=== PATIENT | male | born 1995 | race African-American/Black ===

== ENCOUNTER 2017-10-08 12:20 | Emergency (ER) | payer SELFPAY ==
[~2017-10-08] VITALS: Ht 195.6 cm; Wt 135.0 kg
[~2017-10-08 12:20] MED LIST: CYCL-36 PO; DICL50 PO
[2017-10-08 12:26] VITALS: BP 168/72; PULSE 83; RESP 12; TEMP 98.6; O2SAT 97
[2017-10-08] MEDS ORDERED: SODIUM CHLOR 0.9% 1000 ML INJ 1,000 ML IV ONE ×2 (12:48→13:15)
--- NOTE | 2017-10-08 12:55 | PD ---
HPI Chief Complaint: Medical Clearance Time Seen by Provider: 12:39 Travel History International Travel<30 days: No Contact w/Intl Traveler<30days: No Traveled to known affect area: No History of Present Illness HPI 22-year-old male presents emergency department complaining of polyuria and blurred vision for 2-3 days. Patient states that he has been urinating every 10 -15 minutes for 2-3 days. Denies dysuria, hematuria. Patient states that he does not normally have blurry vision and does does not wear corrective lenses. Patient describes blurry vision as foggy" trails" in difficulty seeing at distance. Patient denies photophobia but does admit to a mild headache for approximately 2 days. Patient denies chronic medical issues medication use. States that he has not seen a primary care physician in a number of years. Patient does not know if his immunizations are up-to-date. Patient does have a family history of diabetes with his uncles an cousins. Denies recent trauma, fever, chills, chest pain, shortness of breath, abdominal pain. PFSH Past Medical History Blood Disorders: No Social History Alcohol Use: No Tobacco Use: No Allergies-Medications (Allergen,Severity, Reaction): Coded Allergies: No Known Allergies (Verified Adverse Reaction, Unknown, 10/08/17) Reported Meds & Prescriptions Reported Meds & Active Scripts Active Metformin (Metformin HCl) 500 Mg Tab 500 Mg PO BIDPC 14 Days Review of Systems Except as stated in HPI: all other systems reviewed are Neg Physical Exam Narrative GENERAL: Well-developed well-nourished obese resting comfortably in bed SKIN: Focused skin assessment warm/dry. Acanthosis migrans present on anterior neck HEAD: Atraumatic. Normocephalic. EYES: Pupils equal and round. No scleral icterus. No injection or drainage. ENT: No nasal bleeding or discharge. Mucous membranes pink and moist. NECK: Trachea midline. No JVD. CARDIOVASCULAR: Regular rate and rhythm. No murmur appreciated. RESPIRATORY: No accessory muscle use. Clear to auscultation. Breath sounds equal bilaterally. GASTROINTESTINAL: Abdomen soft, non-tender, nondistended. MUSCULOSKELETAL: No obvious deformities. No clubbing. No cyanosis. No edema. NEUROLOGICAL: Awake and alert. No obvious cranial nerve deficits. Motor grossly within normal limits. Normal speech. PSYCHIATRIC: Appropriate mood and affect; insight and judgment normal. Data Data Last Documented VS Vital Signs Date Time Temp Pulse Resp B/P (MAP) Pulse Ox O2 Delivery O2 Flow Rate FiO2 10/08/17 14:30 10/08/17 14:00 70 19 100 Room Air 10/08/17 12:26 98.6 Orders Orders Complete Blood Count With Diff (10/08/17 12:48) Comprehensive Metabolic Panel (10/08/17 12:48) Magnesium (Mg) (10/08/17 12:48) Beta Hydroxybutyrate (Acetone) (10/08/17 12:48) Urinalysis - C+S If Indicated (10/08/17 12:48) Blood Glucose (10/08/17 12:48) Ecg Monitoring (10/08/17 12:48) Iv Access Insert/Monitor (10/08/17 12:48) Oximetry (10/08/17 12:48) Sodium Chlor 0.9% 1000 Ml Inj (Ns 1000 M (10/08/17 12:48) Lipase (10/08/17 12:48) Sodium Chlor 0.9% 1000 Ml Inj (Ns 1000 M (10/08/17 13:15) Ed Discharge Order (10/08/17 13:44) Labs Laboratory Tests Test 10/08/17 12:50 10/08/17 12:56 Urine Color YELLOW Urine Turbidity CLEAR Urine pH 6.0 Urine Specific [place] 1.042 Urine Protein 100 mg/dL Urine Glucose (UA) 1000 mg/dL Urine Ketones 40 mg/dL Urine Occult Blood SMALL Urine Nitrite NEG Urine Bilirubin NEG Urine Urobilinogen LESS THAN 2.0 MG/DL Urine Leukocyte Esterase NEG Urine RBC 1 /hpf Urine WBC 3 /hpf Urine Squamous Epithelial Cells 1 /hpf Urine Mucus FEW /lpf Urine Yeast (Budding) RARE Microscopic Urinalysis Comment CULT NOT INDICATED White Blood Count 6.2 TH/MM3 Red Blood Count 5.90 MIL/MM3 Hemoglobin 14.2 GM/DL Hematocrit 42.1 % Mean Corpuscular Volume 71.4 FL Mean Corpuscular Hemoglobin 24.1 PG Mean Corpuscular Hemoglobin Concent 33.7 % Red Cell Distribution Width 13.1 % Platelet Count 172 TH/MM3 Mean Platelet Volume 10.4 FL Neutrophils (%) (Auto) 44.3 % Lymphocytes (%) (Auto) 47.0 % Monocytes (%) (Auto) 6.4 % Eosinophils (%) (Auto) 1.8 % Basophils (%) (Auto) 0.5 % Neutrophils # (Auto) 2.7 TH/MM3 Lymphocytes # (Auto) 2.9 TH/MM3 Monocytes # (Auto) 0.4 TH/MM3 Eosinophils # (Auto) 0.1 TH/MM3 Basophils # (Auto) 0.0 TH/MM3 CBC Comment DIFF FINAL Differential Comment Blood Urea Nitrogen 13 MG/DL Creatinine 1.11 MG/DL Random Glucose 394 MG/DL Total Protein 8.5 GM/DL Albumin 3.9 GM/DL Calcium Level 9.0 MG/DL Magnesium Level 2.2 MG/DL Alkaline Phosphatase 125 U/L Aspartate Amino Transf (AST/SGOT) 23 U/L Alanine Aminotransferase (ALT/SGPT) 34 U/L Total Bilirubin 0.5 MG/DL Sodium Level 131 MEQ/L Potassium Level 3.8 MEQ/L Chloride Level 94 MEQ/L Carbon Dioxide Level 28.0 MEQ/L Anion Gap 9 MEQ/L Estimat Glomerular Filtration Rate 99 ML/MIN Lipase 154 U/L B-Hydroxybutyrate 0.62 MMOL/L [facility] Medical Decision Making Medical Screen Exam Complete: Yes Emergency Medical Condition: Yes Differential Diagnosis New onset diabetes mellitus, hyperglycemia, electrolyte abnormality Narrative Course 22-year-old male presents emergency department complaining of polyuria and blurred vision for 2-3 days. Patient states that he has been urinating every 10 -15 minutes for 2-3 days. Denies dysuria, hematuria. Patient states that he does not normally have blurry vision his eyes does not wear corrective lenses. Patient describes blurry vision as foggy" trails" in difficulty seeing at distance. Patient denies photophobia but does admit to a mild headache for approximately 2 days. Patient denies chronic medical issues medication use. States that he has not seen a primary care physician in a number of years. Patient does not know if his immunizations are up-to-date. Patient does have a family history of diabetes with his uncles an cousins. Denies recent trauma, fever, chills, chest pain, shortness of breath, abdominal pain. Vital signs stable. Physical exam findings reveal a nontoxic-appearing 22-year-old male in no acute distress. CBC & BMP Diagram 10/08/17 12:56 Total Protein 8.5 H, Albumin 3.9, Calcium Level 9.0, Magnesium Level 2.2, Alkaline Phosphatase 125 H, Aspartate Amino Transf (AST/SGOT) 23, Alanine Aminotransferase (ALT/SGPT) 34, Total Bilirubin 0.5 Labs demonstrate random glucose at 394, corrected sodium at 136.9. beta Hydroxybutyrate elevated at 0.62. Anion gap at 15. 2 L normal saline IV bolus administered. Pt feels well and prefers to go home and will follow up as discussed. Pt has new onset DM. FBG>200 with symptoms of diabetes. Pt will be discharged with metformin and advised to follow up in primary care and consider endocrinology. Diagnosis Primary Impression: Diabetes mellitus, new onset Additional Impression: Hyperglycemia Referrals: [facility] Additional Instructions: Follow-up with [facility] as discussed. I strongly advised to follow-up with an eye doctor as well to evaluate for potential diabetic retinopathy or diabetes induced visual changes. Follow-up with her primary care physician to discuss further options regarding treatment. If you choose not to follow-up, it as possible that you could develop permanent nerve damage to include blindness, neuropathy, in the inability to have an erection. Scripts Metformin (Metformin) 500 Mg Tab 500 MG PO BIDPC for Blood Sugar Management for 14 Days, #28 TAB 0 Refills Prov: Fallon Milligan 10/08/17 Disposition: 01 DISCHARGE HOME Condition: Stable Fallon Milligan Oct 08, 2017 12:55
[2017-10-08 13:12] LABS: AUTOMATED NEUTROPHIL # 2.7 TH/MM3 (1.8-7.7); BASOPHIL % 0.5 % (0.0-2.0); EOSINOPHIL # 0.1 TH/MM3 (0-0.4); EOSINOPHIL % 1.8 % (0.0-4.0); HEMATOCRIT 42.1 % (39.0-51.0); HEMOGLOBIN 14.2 GM/DL (13.0-17.0); LYMPHOCYTE # 2.9 TH/MM3 (1.0-4.8); MEAN CELL VOLUME 71.4 FL (80.0-100.0); MEAN CORPUSCULAR HEMOGLOBIN 24.1 PG (27.0-34.0); MEAN CORPUSCULAR HGB CONC 33.7 % (32.0-36.0); MEAN PLATELET VOLUME 10.4 FL (7.0-11.0); MONO % 6.4 % (0.0-8.0); MONOCYTE # 0.4 TH/MM3 (0-0.9); NEUT % 44.3 % (16.0-70.0); PLATELET COUNT 172 TH/MM3 (150-450); RED CELL DISTRIBUTION WIDTH 13.1 % (11.6-17.2); WHITE BLOOD COUNT 6.2 TH/MM3 (4.0-11.0)
[2017-10-08 13:23] LABS: BILIRUBIN, URINE NEG (NEG); BLOOD, URINE SMALL (NEG); GLUCOSE,URINE 1000 mg/dL (NEG); KETONE, URINE 40 mg/dL (NEG); MUCUS URINE FEW /lpf (OCC); NITRITE,URINE NEG (NEG); SQUAMOUS EPITHELIAL CELL URINE 1 /hpf (0-5); URINE COLOR YELLOW (YELLW/STRAW); URINE LEUKOCYTE ESTERASE NEG (NEG)
[2017-10-08 13:25] VITALS: BP 128/66; PULSE 78; RESP 21; O2SAT 97
[2017-10-08 13:26] LABS: ALBUMIN 3.9 GM/DL (3.4-5.0); ALT (GPT) 34 U/L (12-78); AST (GOT) 23 U/L (15-37); BLOOD UREA NITROGEN 13 MG/DL (7-18); CHLORIDE 94 MEQ/L (98-107); CREATININE 1.11 MG/DL (0.60-1.30); GLOMERULAR FILTRATION RATE 99 ML/MIN (>89); GLUCOSE,RANDOM 394 MG/DL (74-106); LIPASE 154 U/L (73-393); MAGNESIUM 2.2 MG/DL (1.5-2.5); SODIUM (NA) 131 MEQ/L (136-145)
[2017-10-08 13:28] LABS: ALKALINE PHOSPHATASE 125 U/L (45-117); TOTAL BILIRUBIN ADULT 0.5 MG/DL (0.2-1.0); TOTAL PROTEIN 8.5 GM/DL (6.4-8.2)
[2017-10-08] MEDS ORDERED: METF500T PO (13:42)
[2017-10-08 14:00] VITALS: BP 150/66; PULSE 70; RESP 19; O2SAT 100
--- NOTE | 2017-10-08 15:11 | PD ---
Data Data Last Documented VS Vital Signs Date Time Temp Pulse Resp B/P (MAP) Pulse Ox O2 Delivery O2 Flow Rate FiO2 10/08/17 14:30 10/08/17 14:00 70 19 100 Room Air 10/08/17 12:26 98.6 Orders Orders Complete Blood Count With Diff (10/08/17 12:48) Comprehensive Metabolic Panel (10/08/17 12:48) Magnesium (Mg) (10/08/17 12:48) Beta Hydroxybutyrate (Acetone) (10/08/17 12:48) Urinalysis - C+S If Indicated (10/08/17 12:48) Blood Glucose (10/08/17 12:48) Ecg Monitoring (10/08/17 12:48) Iv Access Insert/Monitor (10/08/17 12:48) Oximetry (10/08/17 12:48) Sodium Chlor 0.9% 1000 Ml Inj (Ns 1000 M (10/08/17 12:48) Lipase (10/08/17 12:48) Sodium Chlor 0.9% 1000 Ml Inj (Ns 1000 M (10/08/17 13:15) Ed Discharge Order (10/08/17 13:44) Labs Laboratory Tests Test 10/08/17 12:50 10/08/17 12:56 Urine Color YELLOW Urine Turbidity CLEAR Urine pH 6.0 Urine Specific [place] 1.042 Urine Protein 100 mg/dL Urine Glucose (UA) 1000 mg/dL Urine Ketones 40 mg/dL Urine Occult Blood SMALL Urine Nitrite NEG Urine Bilirubin NEG Urine Urobilinogen LESS THAN 2.0 MG/DL Urine Leukocyte Esterase NEG Urine RBC 1 /hpf Urine WBC 3 /hpf Urine Squamous Epithelial Cells 1 /hpf Urine Mucus FEW /lpf Urine Yeast (Budding) RARE Microscopic Urinalysis Comment CULT NOT INDICATED White Blood Count 6.2 TH/MM3 Red Blood Count 5.90 MIL/MM3 Hemoglobin 14.2 GM/DL Hematocrit 42.1 % Mean Corpuscular Volume 71.4 FL Mean Corpuscular Hemoglobin 24.1 PG Mean Corpuscular Hemoglobin Concent 33.7 % Red Cell Distribution Width 13.1 % Platelet Count 172 TH/MM3 Mean Platelet Volume 10.4 FL Neutrophils (%) (Auto) 44.3 % Lymphocytes (%) (Auto) 47.0 % Monocytes (%) (Auto) 6.4 % Eosinophils (%) (Auto) 1.8 % Basophils (%) (Auto) 0.5 % Neutrophils # (Auto) 2.7 TH/MM3 Lymphocytes # (Auto) 2.9 TH/MM3 Monocytes # (Auto) 0.4 TH/MM3 Eosinophils # (Auto) 0.1 TH/MM3 Basophils # (Auto) 0.0 TH/MM3 CBC Comment DIFF FINAL Differential Comment Blood Urea Nitrogen 13 MG/DL Creatinine 1.11 MG/DL Random Glucose 394 MG/DL Total Protein 8.5 GM/DL Albumin 3.9 GM/DL Calcium Level 9.0 MG/DL Magnesium Level 2.2 MG/DL Alkaline Phosphatase 125 U/L Aspartate Amino Transf (AST/SGOT) 23 U/L Alanine Aminotransferase (ALT/SGPT) 34 U/L Total Bilirubin 0.5 MG/DL Sodium Level 131 MEQ/L Potassium Level 3.8 MEQ/L Chloride Level 94 MEQ/L Carbon Dioxide Level 28.0 MEQ/L Anion Gap 9 MEQ/L Estimat Glomerular Filtration Rate 99 ML/MIN Lipase 154 U/L B-Hydroxybutyrate 0.62 MMOL/L MDM Supervised Visit with BERNARDA: Yes Narrative Course The history, exam, and medical decision-making in the associated midlevel provider note were completed with my assistance. I reviewed and agree with the findings presented. I attest that I had a [id number] encounter with the patient on the same day, and personally performed and documented my assessment and findings in the medical record. *My assessment and Findings: This is a 22-year-old male who presents to the emergency department with polydipsia, polyuria and blurry vision. Patient has an elevated blood sugar. Labs are otherwise reassuring. He likely has new onset type 2 diabetes. He will be started on metformin. He was given 2 L of IV hydration in the emergency department. He was given dietary counseling and referred to [facility]. Diagnosis Primary Impression: Diabetes mellitus, new onset Additional Impression: Hyperglycemia Referrals: [facility] Patient Instructions: General Instructions, Diabetic Hyperglycemia (ED), Diabetes in the Older Adult (ED) Departure Forms: Tests/Procedures Additional Instruction: Follow-up with [facility] as discussed. I strongly advised to follow-up with an eye doctor as well to evaluate for potential diabetic retinopathy or diabetes induced visual changes. Follow-up with her primary care physician to discuss further options regarding treatment. If you choose not to follow-up, it as possible that you could develop permanent nerve damage to include blindness, neuropathy, in the inability to have an erection. Scripts Metformin (Metformin) 500 Mg Tab 500 MG PO BIDPC for Blood Sugar Management for 14 Days, #28 TAB 0 Refills Prov: Fallon Milligan 10/08/17 Disposition: 01 DISCHARGE HOME Condition: Stable Tamy Ayala MD Oct 08, 2017 15:11
== END 2017-10-08 14:45 | disposition home or self-care (01) ==
LOC: NEPC 12:20
DX: E11.65 Type 2 diabetes mellitus with hyperglycemia (principal); Z83.3 Family history of diabetes mellitus
CPT/HCPCS: 80053; 81001; 82010; 83690; 83735; 85025; 96360; 99284; J7030